=== PATIENT | female | born 1980 | race Caucasian/White ===

== ENCOUNTER 2019-06-05 11:26 | Inpatient (IN) | payer MEDICAID ==
[~2019-06-05] VITALS: Ht 154.9 cm; Wt 54.0 kg
--- NOTE | 2019-06-05 11:27 | NUR ---
Yvonne huntley in [facility] - 06/05/19 at [email or web address] Martinez evaluating patient at bedside.
[2019-06-05 11:32] VITALS: BP 116/75
--- NOTE | 2019-06-05 11:36 | NUR ---
Patient ambulated to bed 9. RN evaluating patient at bedside.
--- NOTE | 2019-06-05 11:37 | NUR ---
Dr. Martinez evaluating patient at bedside.
[2019-06-05] MEDS ORDERED: NACL 0.9% 1,000 ML IV SCH ×2 (11:48→16:14)
[2019-06-05] MEDS ORDERED: ONDANSETRON 4 MG/2 ML VIAL IVP ONE (11:50)
[2019-06-05] MEDS ORDERED: DIPHENOXYLATE /ATROPINE 2.5 MG TAB PO ONE (11:50)
--- NOTE | 2019-06-05 11:50 | NUR ---
Yvonen huntley in [facility] - 06/05/19 at [email or web address] MOSQUEDA AT BEDSIDE EVALUATING PT
--- NOTE | 2019-06-05 11:55 | NUR ---
PT C/O NON RADIATING RUQ ABD PAIN 6/10 & CRAMPING ACCOMPANIED BY N/V/D & CHILLS/WEAKNESS X1 WEEK. PT STATES "I HAVE HAD DIARRHEA AT LEAST 4 TIMES A DAY, MAYBE MORE, AND ALSO THE SAME OF VOMITING." PT AND HER REPORT THE WHOLE FAMILY BEING SICK WITH A STOMACH FLU RECENTLY. PT STATES SHE HAS LOST 10LBS IN THE LAST WEEK AND IS UNABLE TO KEEP FOOD OR WATER DOWN. ABDOMEN IS SOFT & TENDER TO PALPATION ON RUQ. LBM TODAY, DIARRHEA. BOWEL SOUNDS PRESENT X4. BED IN LOW POSITION, SIDE RAIL UP X1.
--- NOTE | 2019-06-05 11:56 | NUR ---
PHLEB at bedside.
--- NOTE | 2019-06-05 12:03 | NUR ---
TONGUE STITCHER AT BEDSIDE
[2019-06-05 12:08] LABS: BASOPHILS % (AUTO) 0.4 % (0.0-2.0); EOSINOPHILS # (AUTO) 0.1 K/uL (0-0.4); EOSINOPHILS % (AUTO) 1.4 % (0.0-4.0); HEMATOCRIT 45.8 % (36-48); LYMPHOCYTES # (AUTO) 1.5 K/uL (2.5-16.5); MEAN CORPUSCULAR HEMOGLOBIN 31 pg (27-31); MEAN CORPUSCULAR HGB CONC 35 g/dL (33-37); MEAN CORPUSCULAR VOLUME 89.7 fL (80-94); MONOCYTES # (AUTO) 0.7 K/uL (0.8-1.0); MONOCYTES % (AUTO) 13.8 % (1.7-9.3); NEUTROPHILS # (AUTO) 2.7 K/uL (1.8-7.7); NEUTROPHILS % (AUTO) 54.4 % (42.2-75.2); PLATELET COUNT (AUTO) 240 K/uL (140-450); RED CELL DISTRIBUTION WIDTH 12.2 % (11.6-13.7); WHITE BLOOD COUNT (AUTO) 4.9 K/uL (4.8-10.8)
[2019-06-05 12:28] LABS: ALBUMIN 3.6 g/dL (3.4-5.0); ANION GAP 14.6 (8-16); CARBON DIOXIDE 28.3 mmol/L (21-32); POTASSIUM 2.9 mmol/L (3.5-5.1); TOTAL BILIRUBIN 0.6 mg/dL (0.0-1.0)
[2019-06-05] MEDS ORDERED: KCL 20 MEQ/WATER INJ PREMIX 100 ML IV ONE (12:45)
[2019-06-05] MEDS ORDERED: MAG SULF 2000 MG/WATER PREMIX 50 ML IV ONE (12:45)
[2019-06-05] MEDS ORDERED: POTASSIUM CHLORIDE 10 MEQ TABER PO ONE (12:45)
--- NOTE | 2019-06-05 13:44 | NUR ---
Dr. Martinez re-evaluating patient at bedside.
[2019-06-05 14:17] LABS: APPEARANCE,URINE CLEAR (CLEAR); BILIRUBIN,URINE 2+ (NEGATIVE); BLOOD, URINE 2+ (NEGATIVE); COLOR,URINE YELLOW (YELLOW); LEUKOCYTE ESTERASE ,URINE TRACE (NEGATIVE); NITRITE, URINE NEGATIVE (NEGATIVE); UGLUCOSE NEGATIVE (NEGATIVE)
[2019-06-05 14:33] LABS: RBC,URINE 11-20 (MOD) /HPF (0-5); WBC,URINE 16-25 (MOD) /HPF (0-5)
--- NOTE | 2019-06-05 15:45 | NUR ---
PT STATES SHE HAD SYNCOPAL EPISODE IN BATHROOM, PT WAS AMBULATORY TO [facility] ROM BATHRROO, STATES SHE "LAID AGAINST WALL" AND WAS "OUT" FOR A FEW SECONDS, REDNESS NOTED TO FOREHEAD, NO OPEN SKIN, PT IS A&OX4, VSS, DR MOSQUEDA MADE AWARE.
--- NOTE | 2019-06-05 16:00 | NUR ---
PT AWAKE AND RESTING IN BED AT THIS TIME. NO NEW NEEDS PER PT
[2019-06-05] MEDS ORDERED: MORPHINE SULFATE 2 MG/ML SYR IVP PRN (16:15)
[2019-06-05] MEDS ORDERED: HYDROcodone/APAP 5/325 MG 1 TAB TAB PO PRN (16:15)
[2019-06-05] MEDS ORDERED: ACETAMINOPHEN 325 MG TAB PO PRN (16:15)
[2019-06-05] MEDS ORDERED: ONDANSETRON 4 MG/2 ML VIAL IM/IVP PRN (16:15)
--- NOTE | 2019-06-05 16:40 | NUR ---
PT AWAKE AND ON PHONE IN BED
[2019-06-05] MEDS ORDERED: DEXT 5% /NACL 0.9% 1,000 ML IV ONE (17:00)
--- NOTE | 2019-06-05 17:00 | NUR ---
GOT BEDSIDE REPORT FROM ER NURSE. PATIENT ON MED SURGE FLOOR WITH STANDARD PRECAUTIONS IN PLACE. PATIENT AAOX3, FOLLOWS COMMANDS, AND COMMUNICATES APPROPRIATELY. PATIENT SKIN INTACT, FALL RISK PROTOCOL IN PLACE. PATIENT ON ROOM AIR, NO DISTRESS NOTED. IVS ON L AC 20 G INFUSING D5 1/2 NS AT 100, AND R AC 22 G SALINE LOCK, BOTH IVS PATENT AND INTACT. BED IN LOW POSITION, CALL LIGHT WITHIN REACH, SIDE RAILS X2 UP
--- NOTE | 2019-06-05 17:08 | NUR ---
Patient will be admitted to care of [facility]. Admited to MED SURG. Will go to room 106A. Belongings list completed. Report to JIMBO BYRNE.
[2019-06-05 17:26] VITALS: BP 101/68
[2019-06-05 17:41] LABS: MAGNESIUM 2.2 mg/dL (1.8-2.4); PHOSPHORUS 4.6 mg/dL (2.5-4.9)
[2019-06-05 17:48] LABS: BARBITURATE, URINE NEG. ng/ml (NEG <=200); BENZODIAZEPINE, URINE NEG. ng/mL (NEG <=200); CANNABINOID, URINE NEG. ng/mL (NEG <=50); COCAINE, URINE NEG. ng/mL (NEG <=300); OPIATE, URINE NEG. ng/mL (NEG <=2000); PHENCYCLIDINE SCREEN,URINE NEG. ng/mL (NEG <=25)
[2019-06-05 17:50] LABS: PROTHROMBIN TIME 9.6 secs (10.8-13.4)
--- NOTE | 2019-06-05 19:00 | NUR ---
GAVE BEDSIDE REPORT TO VP COMMUNICATIONS NURSE. PATIENT ENDORSED IN STABLE CONDITION
[2019-06-05] MEDS ORDERED: LOPERAMIDE 2 MG CAP PO PRN (19:15)
--- NOTE | 2019-06-05 19:25 | NUR ---
RECEIVED FROM AM RN IN BED AWAKE AND ALERT. ORIENTED X 4. FOLLOWS COMMANDS, AND COMMUNICATES APPROPRIATELY. PATIENT SKIN INTACT, FALL RISK PROTOCOL IN PLACE. PATIENT ON ROOM AIR, NO DISTRESS NOTED. IVS ON L AC 20 G INFUSING D5 1/2 NS AT 100, AND R AC 22 G SALINE LOCK, BOTH IVS PATENT AND INTACT. BED IN LOW POSITION, CALL LIGHT WITHIN REACH, SIDE RAILS X2 UP. CARE PLANS FOR THE NIGHT DISCUSSED WITH HER. CALL LIGHT WITH IN REACH.
[2019-06-05] MEDS ORDERED: KETOROLAC 15 MG/ML VIAL IM PRN (19:55)
--- NOTE | 2019-06-05 21:42 | NUR ---
PT. NPO EXCEPT MEDICATIONS STATUS AT THIS TIME. FOR CT HEAD WITHOUT CONTRAST. AWAKE AND ALERT. NO SOB. ORIENTED X 4. ABLE TO VERBALIZE NEEDS WELL IN [place]. FOLLOWS COMMAND WELL. ENCOURAGED TO CALL FOR ANY HELP SHE MAY NEED. BED ALARM ON.
[2019-06-05 22:11] LABS: ANION GAP 11.6 (8-16); CARBON DIOXIDE 26.2 mmol/L (21-32); CREATININE 0.8 mg/dL (0.6-1.3); POTASSIUM 3.8 mmol/L (3.5-5.1)
--- NOTE | 2019-06-05 23:00 | NUR ---
PT. SLEEPING. NO COMPLAINTS DONE. NO RESTLESSNESS. BED ALARM ON AND CALL LIGHT AT BEDSIDE WITH IN REACH.
[2019-06-06] VITALS (11 sets, daily range): BP systolic 64–97; BP diastolic 25–92
[2019-06-06] MEDS ORDERED: NACL 0.9% 1,000 ML IV SCH (00:15)
--- NOTE | 2019-06-06 00:25 | NUR ---
ORTHOSTATIC VITAL SIGNS TAKEN AND MADE RESIDENT MD AWARE OF IT. WITH NEW ORDER FOR BOLUS. PT. AWAKE AND ALERT. STANDBY ASSIST TO RESTROOM BY PRODUCE WEIGHER AT THIS TIME. NO COMPLAINTS OF PAIN. ABLE TO WALK BY HERSELF. BED ALARM ON.
--- NOTE | 2019-06-06 04:15 | NUR ---
PT. REQUESTED FOR ANTI DIARRHEA RT STATED THAT SHE HAS LOOSE STOOL. WILL MEDICATE WITH IMODIUM P.O. ORDERED BY MD. PT. ABLE TO VERBALIZE NEEDS WELL IN [place]GOLESE. CALL LIGHT WITH IN REACH AND BED ALARM ON.
--- NOTE | 2019-06-06 05:25 | NUR ---
PT. SLEEPING AT THIS TIME. AM PERSONAL HYGIENE RENDERED BY CHEMICALS DISTILLER. NO COMPLAINTS OF PAIN DONE. ABLE TO VERBALIZE NEEDS WELL. CALL LIGHT WITH IN REACH AND BED ALARM ON. DX. OF SYNCOPE AND HYPOKALEMIA. PT. BEEN AMBULATING TO RESTROOM SITUATED INSIDE ROOM INDEPENDENTLY BUT WITH STANDBY ASSIST.
[2019-06-06] MEDS ORDERED: DEXT 5% /NACL 0.9% 1,000 ML IV SCH (06:35)
--- NOTE | 2019-06-06 06:37 | NUR ---
RESIDENT MD MADE AWARE OF LATEST VITAL SIGNS. " I WILL ORDER IVF TO CONTINUE." PT. ABLE TO VERBALIZE NEEDS WELL. NO SOB. BED ALARM ON. CALL LIGHT WITH IN REACH.
--- NOTE | 2019-06-06 07:35 | NUR ---
ENDORSED TO THE NEXT RN AWAKE AND ALERT. NO COMPLAINTS DONE. ASSISTED WITH AMBULATION RT DX. SYNCOPE.
[2019-06-06 07:50] LABS: CHOL/HDL RATIO 3.4 (1-4.5)
[2019-06-06] MEDS ORDERED: NACL 0.9% 1,000 ML IV ONE ×2 (08:00→21:30)
--- NOTE | 2019-06-06 08:00 | NUR ---
RECEIVED BED SIDE REPORT FROM WOOD BARREL RECONDITIONER RN. PT A/O X4, SKIN INTACT, RIGHT AC 22G AND L AC 20G RUNNING 1L BOLUS NS. BP 91/57, PT ASYMPTOMATIC, DENIES LIGHTHEADEDNESS, DIZZYNESS. PT ON TELE MONITOR NOW. PT ON CLEAR LIQUID DIET. LUNG SOUNDS CLEAR, REGULAR HEART SOUNDS. ON FALL RISK, CALL LIGHT WITHIN REACH. EDUCATED PT ON LETTING ME KNOW WHEN SHE HAS A BM. WILL COLLECT STOOL CULTURE AND C.DIFF TOXIN SAMPLE. ON RA IN NO RESP DISTRESS, WILL CONTINUE TO MONITOR.
--- NOTE | 2019-06-06 08:11 | NUR ---
GAVE BED SIDE REPORT TO HAL CHOI. PT STABLE.
--- NOTE | 2019-06-06 08:21 | NUR ---
RECEIVED REPORT FROM LIVAN CHOI FOR CONTINUITY OF CARE. PT IN STABLE CONDITION AT THIS TIME. WILL MONITOR PT FREQUENTLY.
--- NOTE | 2019-06-06 08:36 | NUR ---
PATIENT HAS BEEN SCREENED AND CATEGORIZED HIGH NUTRITION RISK. PATIENT WILL BE SEEN WITHIN 1-2 DAYS OF ADMISSION. 06/06/19-06/07/[address]
--- NOTE | 2019-06-06 09:21 | NUR ---
COLLECTED STOOL SPECIMEN AND SENT TO LAB. AWAITING C-DIFF RESULTS. PT IN STABLE CONDITION AT THIS TIME.
--- NOTE | 2019-06-06 11:47 | NUR ---
PT EXPERIENCING DIARRHEA. PT ABLE TO AMBULATE SELF. AWAITING C-DIFF RESULTS. CONTACT ISOLATION SIGNS POSTED FOR PRECAUTION.
[2019-06-06] MEDS: POTASSIUM CHL 20MEQ/D5-NS 1,000 ML IV SCH (11:51)
[2019-06-06] MEDS ORDERED: MAGNESIUM CITRATE 300 ML BTL PO SCH (13:00)
--- NOTE | 2019-06-06 13:38 | NUR ---
PT RESTING IN BED. WILL CONTINUE TO ROUND FREQUENTLY ON PT.
[2019-06-06] MEDS: SENNA 8.6 MG TAB PO SCH ×2 (13:39→17:00)
[2019-06-06 14:48] LABS: ANION GAP 12.3 (8-16); CARBON DIOXIDE 22.2 mmol/L (21-32); CREATININE 0.7 mg/dL (0.6-1.3); POTASSIUM 3.5 mmol/L (3.5-5.1)
--- NOTE | 2019-06-06 15:18 | NUR ---
06/06/19 RD INITIAL ASSESSMENT COMPLETED PLEASE REFER TO NUTRITION ASSESSMENT UNDER CARE ACTIVITY FOR ESTIMATED NUTRITIONAL NEEDS. 1. RECOMMEND ENSURE CLEAR BID 2. CONTINUE CLEAR LIQUID DIET MEDICALLY APPROPRIATE 3. ADVANCE DIET TO REGULAR TOLERATED 4. RD TO FOLLOW-UP 3-5 DAYS, MODERATE RISK STANLEY PHILIP, RD
--- NOTE | 2019-06-06 15:47 | NUR ---
PT SLEEPING. VITAL SIGNS STABLE. TELE MONITOR ON. WILL CONTINUE TO ROUND FREQUENTLY ON PT.
[2019-06-06] MEDS: METOCLOPRAMIDE 10 MG TAB PO SCH (17:31)
--- NOTE | 2019-06-06 19:00 | NUR ---
RECEIVED BEDSIDE REPORT FROM DAYSHIFT NURSE. PATIENT IS AWAKE, ALERT, AND COOPERATIVE. RESPIRATION EVEN UNLABORED ON ROOM AIR. NO DISTRESS NOTED. SKIN IS WARM AND DRY. IV PATENT AND INTACT. DENIES PAIN. PATIENT IS AMBULATORY AND ABLE TO MAKE NEEDS KNOWN. PLAN OF CARE WAS DISCUSSED. ALL SAFETY MEASURES IN PLACE. BED IS AT LOW POSITION. CALL LIGHT WITHIN REACH AND VERBALIZES ITS USE. WILL CONTINUE TO MONITOR.
--- NOTE | 2019-06-06 19:51 | NUR ---
ENDORSED PT TO CENTER ADMINISTRATOR FOR CONTINUITY OF CARE. PT IN STABLE CONDITION AT THIS TIME.
--- NOTE | 2019-06-06 20:00 | NUR ---
INITIAL ASSESSMENT DONE. VITALS WERE TAKEN. PATIENT BP 83/46 WILL NOTIFY RESIDENT AND RECHECK AGAIN LATER.
--- NOTE | 2019-06-06 20:30 | NUR ---
RECHECKED BP. PATIENT BP 85/55. DR KEVIN (RESIDENT) NOTIFIED. WILL CONTINUE TO MONITOR.
[2019-06-06] MEDS: POLYETHYLENE GLYCOL 17 GM/PKT PO SCH (20:57)
[2019-06-06] MEDS: LACTULOSE 20 GM/30 ML UDC PO SCH (20:57)
--- NOTE | 2019-06-06 21:00 | NUR ---
ALL SCHEDULED MEDS WERE GIVEN PER ORDER. NO ASE NOTED. WILL CONTINUE TO MONITOR.
--- NOTE | 2019-06-06 21:39 | NUR ---
PATIENT IS TAKING LAXATIVE FOR COLONOSCOPY PROCEDURE. HAD A BOWEL MOVEMENT. TEXTURE SOFT-LIQUID. COLOR YELLOW. WILL CONTINUE TO MONITOR.
--- NOTE | 2019-06-06 22:00 | NUR ---
DR. KEVIN (RESIDENT) ORDER TO BOLUS 1L OF NS. WILL CONTINUE TO MONITOR.
--- NOTE | 2019-06-06 23:30 | NUR ---
BOLUS OF 1L NS DONE. CHECKED PATIENT BP 83/56 REPORT THE RESULT TO DR. KEVIN (RESIDENT) WILL CONTINUE TO MONITOR.
[2019-06-07] VITALS: BP 83/56
--- NOTE | 2019-06-07 | NUR ---
VITALS WERE TAKEN. BP STILL LOW. DR. KEVIN (RESIDENT) PUT AN ORDER FOR PROAMATINE 10MG TO INCREASED BP. WILL CONTINUE TO MONITOR FOR EFFECTIVENESS.
[2019-06-07] MEDS: POTASSIUM CHL 20MEQ/D5-NS 1,000 ML IV SCH ×4 (00:09→16:32)
--- NOTE | 2019-06-07 02:30 | NUR ---
CHECKED PATIENT. PATIENT SLEEPING RESPIRATION EVEN UNLABORED ON ROOM AIR. NO DISTRESS NOTED. WILL CONTINUE TO MONITOR.
[2019-06-07 04:00] VITALS: BP 98/60
--- NOTE | 2019-06-07 04:00 | NUR ---
VITALS WERE TAKEN. PATIENT BP IMPROVED 98/60. NO DISTRESS NOTED. WILL CONTINUE TO MONITOR.
--- NOTE | 2019-06-07 06:27 | NUR ---
PATIENT TOTAL BOWEL MOVEMENT 4. STOOL IS WATERY NO SOLID PIECES ENTIRELY LIQUID. COLOR IS YELLOW.
[2019-06-07] MEDS: METOCLOPRAMIDE 10 MG TAB PO SCH ×2 (06:37→12:40)
[2019-06-07] MEDS ORDERED: MIDODRINE 5 MG TAB PO SCH ×2 (07:00)
--- NOTE | 2019-06-07 07:15 | NUR ---
ENDORSED PATIENT TO DAY SHIFT NURSE. PATIENT IN STABLE CONDITION.
--- NOTE | 2019-06-07 07:27 | NUR ---
RECEIVED HAND OFF REPORT FROM PM RN. PT AWAKE IN BED. IVF INFUSING AT 125 ML/HR. IV SITE PATENT AND SHOWS NO SIGNS OF INFILTRATION OF INFLAMMATION. ALL SAFETY MEASURES ARE IN PLACE WILL CONTINUE TO MONITOR
[2019-06-07 07:45] LABS: ANION GAP 14.9 (8-16); CREATININE 0.6 mg/dL (0.6-1.3); POTASSIUM 3.9 mmol/L (3.5-5.1)
[2019-06-07 07:50] LABS: BASOPHILS % (AUTO) 0.2 % (0.0-2.0); EOSINOPHILS # (AUTO) 0.1 K/uL (0-0.4); EOSINOPHILS % (AUTO) 2.6 % (0.0-4.0); HEMATOCRIT 37.3 % (36-48); HEMOGLOBIN 12.6 g/dL (12.0-16.0); LYMPHOCYTES # (AUTO) 1.5 K/uL (2.5-16.5); MEAN CORPUSCULAR HEMOGLOBIN 31 pg (27-31); MEAN CORPUSCULAR HGB CONC 34 g/dL (33-37); MEAN CORPUSCULAR VOLUME 91.8 fL (80-94); MONOCYTES # (AUTO) 0.4 K/uL (0.8-1.0); MONOCYTES % (AUTO) 9.4 % (1.7-9.3); NEUTROPHILS # (AUTO) 1.8 K/uL (1.8-7.7); NEUTROPHILS % (AUTO) 47.8 % (42.2-75.2); PLATELET COUNT (AUTO) 231 K/uL (140-450); RED BLOOD CELL COUNT(AUTO) 4.07 MIL/uL (4.20-5.40); RED CELL DISTRIBUTION WIDTH 12.3 % (11.6-13.7); WHITE BLOOD COUNT (AUTO) 3.8 K/uL (4.8-10.8)
[2019-06-07 08:00] VITALS: BP 129/88
[2019-06-07 08:20] LABS: MAGNESIUM 1.9 mg/dL (1.8-2.4); PHOSPHORUS 2.9 mg/dL (2.5-4.9)
[2019-06-07] MEDS: POLYETHYLENE GLYCOL 17 GM/PKT PO SCH (08:23)
[2019-06-07] MEDS: LACTULOSE 20 GM/30 ML UDC PO SCH (08:23)
[2019-06-07] MEDS: SENNA 8.6 MG TAB PO SCH ×2 (08:23→12:40)
--- NOTE | 2019-06-07 08:23 | NUR ---
ADMINISTERED MIRALAX, SENNA, AND LACTULOSE. WOW 6 NOT SCANNING
--- NOTE | 2019-06-07 11:25 | NUR ---
FREQUENT ROUNDING ON PT PT APPEARS STABLE AND IN NO APPARENT DISTRESS. ALL SAFETY MEASURES ARE IN PLACE WILL CONTINUE TO MONITOR
[2019-06-07 12:30] VITALS: BP 120/75
[2019-06-07] MEDS ORDERED: CHLORHEXADINE GLUC 2% CLOTH TP SCH (13:00)
[2019-06-07] MEDS ORDERED: MUPIROCIN CA NASAL 2% 1GM TUBE NS SCH (13:00)
--- NOTE | 2019-06-07 13:40 | NUR ---
POSITIVE MRSA NARES. NOTIFIED DR. PATEL. RECEIVED ORDERS FOR CHOLEXIDEN WIPES AND BACTROBAN. INSTRUCTED PT ON DIAGNOSIS AND THE ROUTINE
[2019-06-07] MEDS ORDERED: fentaNYL 0.05 MG/ML VIAL ONE (15:25)
[2019-06-07] MEDS ORDERED: diphenhydrAMINE 50 MG/ML VIAL ONE (15:25)
[2019-06-07] MEDS ORDERED: MIDAZOLAM 2 MG/2 ML VIAL ONE (15:25)
--- NOTE | 2019-06-07 15:26 | NUR ---
PT TAKEN OFF THE UNIT FOR PROCEDURE.
[2019-06-07] MEDS ORDERED: MIDAZOLAM 2 MG/2 ML VIAL IVP ONE (16:20)
[2019-06-07] MEDS ORDERED: fentaNYL 0.05 MG/ML VIAL IVP ONE (16:20)
[2019-06-07 16:25] VITALS: BP 103/74
--- NOTE | 2019-06-07 16:40 | NUR ---
PT ARRIVED BACK ON THE UNIT FROM EGD COLONSCOPY/ PT APPEARS STABLE AND IN NO APPARENT DISTRESS. CONNECTED PT BACK TO IVF. IV SITE PATENT AND SHOWS NO SIGNS OF INFILTRATION OR INFLAMMATION. 103/74 99% SPO2 ON ROOM AIR 97.6 HR 89. PT AMBULATED TO BATHROOM WITH A STEADY GAIT. GAVE PT CHICKEN BROTH AND JELLO PATIENT TOLERATED NO COMPLAINTS OF NAUSEA OR UPSET STOMACH
[2019-06-07 17:20] VITALS: BP 108/62
[2019-06-07] MEDS ORDERED: CHLO118S2 TP (17:28)
[2019-06-07] MEDS ORDERED: MUPI2CRE22 NS (17:28)
--- NOTE | 2019-06-07 18:05 | NUR ---
REVIEWED DISCHARGE PAPERWORK WITH PATIENT INFORMED TO CNC SET UP OPERATOR PRESCRIPTION FROM PREFERRED PHARMACY. INFORMED PATIENT THAT SHE HAS A FOLLOW UP APPOINTMENT AT [facility] IN [place] AT 0920 PT SIGNED ALL PAPER WORK I ANSWERED ALL QUESTIONS. REMOVED IV BOTH IV TIPS WERE INTACT.ALL SAFETY MEASURES ARE IN PLACE. WILL CONTINUE TO MONITOR.
== END 2019-06-07 18:00 | disposition home or self-care (01) | DRG 48 ==
LOC: MED 11:26 → MTU 16:14
PROVIDERS: ADMIT General Practice; ATTEND General Practice
PROC: 0DBE8ZX Excision of Large Intestine, Via Natural or Artificial Opening Endoscopic, Diagnostic (ICD-10-PCS; 2019-06-07)
PROC: 0DB68ZX Excision of Stomach, Via Natural or Artificial Opening Endoscopic, Diagnostic (ICD-10-PCS; principal; 2019-06-07 15:15)
PROC: 0DBP8ZX Excision of Rectum, Via Natural or Artificial Opening Endoscopic, Diagnostic (ICD-10-PCS; 2019-06-07 15:15)
DX: G90.8 Other disorders of autonomic nervous system (principal); E87.8 Other disorders of electrolyte and fluid balance, not elsewhere classified; E87.6 Hypokalemia; K80.20 Calculus of gallbladder without cholecystitis without obstruction; N39.0 Urinary tract infection, site not specified; Z22.322 Carrier or suspected carrier of Methicillin resistant Staphylococcus aureus; K29.70 Gastritis, unspecified, without bleeding
CPT/HCPCS: 36415; 70450; 71045; 76700; 80048; 80053; 80305; 81001; 82150; 82948; 83036; 83605; 83690; 83735; 83880; 84100; 84436; 84443; 84484; 85025; 85610; 85730; 86677; 87045; 87070; 87081; 87086; 87186; 93880; 96365; 96375; 99285; J0696; J1200; J2250; J2405; J3010; J3475; J3480; J7030; J7042; J7060; J8597; Q0092

== ENCOUNTER 2019-09-17 15:49 | Emergency (ER) | payer MEDICAID ==
[~2019-09-17] VITALS: Ht 154.9 cm; Wt 55.8 kg
[~2019-09-17 15:49] MED LIST: CHLO118S2 TP; MUPI2CRE22 NS
[2019-09-17 15:58] VITALS: BP 85/52
--- NOTE | 2019-09-17 16:04 | NUR ---
PT W/C ASSISTED TO BED 2.
[2019-09-17] MEDS ORDERED: NACL 0.9% 1,000 ML IV SCH (16:06)
--- NOTE | 2019-09-17 16:25 | NUR ---
38 Y/O FEMALE PRESENTING WITH C/C OF N/V/D SINCE TUESDAY AND SOB X1 DAY. SPO2 100% ROOM AIR. PER PT NO NKA. NO MEDICATIONS. NO MEDICAL HX. PT STATES ABD PAIN 7/10, BOWEL SOUNDS NORMOACTIVE. LUNG SOUNDS CLEAR BILATERAL. SIDE RAIL X1. FAMILY AT BEDSIDE.
--- NOTE | 2019-09-17 16:26 | NUR ---
LAB AT BEDSIDE
[2019-09-17 16:32] LABS: BASOPHILS % (AUTO) 0.2 % (0.0-2.0); EOSINOPHILS % (AUTO) 0.6 % (0.0-4.0); HEMATOCRIT 41.2 % (36-48); HEMOGLOBIN 14.1 g/dL (12.0-16.0); LYMPHOCYTES # (AUTO) 1.9 K/uL (2.5-16.5); MEAN CORPUSCULAR HEMOGLOBIN 31 pg (27-31); MEAN CORPUSCULAR HGB CONC 34 g/dL (33-37); MONOCYTES # (AUTO) 0.5 K/uL (0.8-1.0); MONOCYTES % (AUTO) 6.9 % (1.7-9.3); NEUTROPHILS # (AUTO) 4.8 K/uL (1.8-7.7); NEUTROPHILS % (AUTO) 66.3 % (42.2-75.2); PLATELET COUNT (AUTO) 223 K/uL (140-450); RED BLOOD CELL COUNT(AUTO) 4.53 MIL/uL (4.20-5.40); RED CELL DISTRIBUTION WIDTH 12.6 % (11.6-13.7); WHITE BLOOD COUNT (AUTO) 7.2 K/uL (4.8-10.8)
--- NOTE | 2019-09-17 16:40 | NUR ---
PT STATES SHE IS UNABLE TO GIVE URINE AT THIS TIME
[2019-09-17 17:01] LABS: ANION GAP 16.7 (8-16); CARBON DIOXIDE 24.3 mmol/L (21-32); CREATININE 0.6 mg/dL (0.6-1.3)
[2019-09-17] MEDS ORDERED: ONDANSETRON 4 MG/2 ML VIAL IVP ONE (17:05)
[2019-09-17] MEDS ORDERED: POTASSIUM CHLORIDE 10 MEQ TABER PO ONE (17:05)
[2019-09-17 17:07] LABS: ALBUMIN 3.5 g/dL (3.4-5.0); TOTAL BILIRUBIN 1.5 mg/dL (0.0-1.0)
[2019-09-17] MEDS ORDERED: PROMETHAZINE 25 MG/ML VIAL IVP ONE (17:15)
--- NOTE | 2019-09-17 17:49 | NUR ---
VS STABLE. PT ALERT AND AWAKE. PAIN 5/10 AT THIS TIME
[2019-09-17 18:02] VITALS: BP 132/72
--- NOTE | 2019-09-17 18:02 | NUR ---
Patient discharged with v/s stable. Written and verbal after care instructions given and explained REGARDING MORNING SICKNESS AND HYPOKALEMIA. Patient alert, oriented and verbalized understanding of instructions. Ambulatory with steady gait. All questions addressed prior to discharge. ID band removed. Patient advised to follow up with PMD. Rx of PHENERGAN given. Patient educated on indication of medication including possible reaction and side effects. Opportunity to ask questions provided and answered. PT GIVEN EXCUSE FOR WORK THROUGH THE 09/18/19
== END 2019-09-17 18:06 | disposition home or self-care (01) ==
LOC: MED 15:49
DX: O21.8 Other vomiting complicating pregnancy (principal); O99.280 Endocrine, nutritional and metabolic diseases complicating pregnancy, unspecified trimester; Z79.899 Other long term (current) drug therapy; Z3A.01 Less than 8 weeks gestation of pregnancy
CPT/HCPCS: 36415; 80053; 81002; 81025; 83690; 85025; 96361; 96374; 99283; J2550; J7030; J2405

== ENCOUNTER 2019-12-13 15:17 | Emergency (ER) | payer MEDICAID ==
[~2019-12-13] VITALS: Ht 154.9 cm; Wt 56.2 kg
[2019-12-13 15:23] VITALS: BP 112/77
--- NOTE | 2019-12-13 15:30 | NUR ---
PT AMBULATED TO BED 8 STEADY GAIT.
--- NOTE | 2019-12-13 15:37 | NUR ---
PT AMBULATED TO BATHROOM FOR URINE SAMPLE, STEADY GAIT
--- NOTE | 2019-12-13 15:43 | NUR ---
38 Y/F PRESENTS TO ED FOR LOW BP, SENT FROM PRIMARY CLINIC. PT C/O LIGHTHEADEDNESS AND HEADACHE. PT A & O X 4, LUNGS CLEAR, ABDOMEN SOFT AND NON DISTENDED. HX OF APPENDECTOMY "LAST TUES", INCISION IS CLEAN, LINEAR, NO DRAINAGE OR EXUDATE NOTED. PT DENIES NAUSEA, ABDOMINAL PAIN, OR FEVER. NKDA RX- IBUPROFEN
[2019-12-13] MEDS ORDERED: KETOROLAC 30 MG/ML VIAL IVP ONE (15:50)
[2019-12-13] MEDS ORDERED: NACL 0.9% 1,000 ML IV ONE (15:50)
--- NOTE | 2019-12-13 16:29 | NUR ---
NADR, decreased pain 5/10
[2019-12-13 16:49] VITALS: BP 98/64
--- NOTE | 2019-12-13 16:50 | NUR ---
Patient discharged with v/s stable. Written and verbal after care instructions given and explained. Patient verbalized understanding. Ambulatory with steady gait. All questions addressed prior to discharge. Advised to follow up with PMD.
--- NOTE | 2019-12-14 12:04 | NUR ---
Late entry. COnfirmed with RN that 0.9 NS IV completed at 1649
== END 2019-12-13 15:45 | disposition home or self-care (01) ==
LOC: MED 15:17
DX: I95.9 Hypotension, unspecified (principal); E86.0 Dehydration; Z79.899 Other long term (current) drug therapy; Z90.49 Acquired absence of other specified parts of digestive tract
CPT/HCPCS: 81002; 81025; 96361; 96374; 99283; J1885; J7030

== ENCOUNTER 2020-05-05 08:22 | Emergency (ER) | payer MEDICAID ==
[~2020-05-05] VITALS: Ht 154.9 cm; Wt 55.8 kg
[2020-05-05 08:31] VITALS: BP 114/76
--- NOTE | 2020-05-05 08:38 | NUR ---
Patient ambulated to bed 7. RN evaluating patient at bedside.
--- NOTE | 2020-05-05 08:40 | NUR ---
PT C/O DIZZINESS AND NON-FOUL WATERY DIARRHEA FOR 2 DAYS PRIOR TO ARRIVAL. DENIES VOMITTING BUT FELT NAUSEA. PT ALSO RESPORT HAVING STERNAL PRESSURE-LIKE NON-RADIATING CP FOR 3 DAYS. THE PAIN EXACERBATED WHILE SHE IS LYING DOWN OR CHANGR POSITION FROM LYING TO SITTING. PT DENIES ANY FEVER, CP, SOB, OR COUGH AT THIS TIME; PATIENT STATES PAIN OF 4/10 AT THIS TIME; VSS; PATIENT POSITIONED FOR COMFORT; HOB ELEVATED; BEDRAILS UP X1; BED DOWN. ER MD MADE AWARE OF PT STATUS.
--- NOTE | 2020-05-05 08:42 | NUR ---
Dr. Martinez is evaluating the patient at bedside.
[2020-05-05] MEDS ORDERED: NACL 0.9% 1,000 ML IV ONE (08:50)
[2020-05-05 09:06] LABS: BASOPHILS % (AUTO) 0.4 % (0.0-2.0); EOSINOPHILS # (AUTO) 0.2 K/uL (0-0.4); EOSINOPHILS % (AUTO) 3.6 % (0.0-4.0); HEMATOCRIT 38.7 % (36-48); HEMOGLOBIN 12.8 g/dL (12.0-16.0); LYMPHOCYTES # (AUTO) 1.8 K/uL (2.5-16.5); LYMPHOCYTES % (AUTO) 32.9 % (20.5-51.1); MEAN CORPUSCULAR HEMOGLOBIN 32 pg (27-31); MEAN CORPUSCULAR HGB CONC 33 g/dL (33-37); MEAN CORPUSCULAR VOLUME 95.4 fL (80-94); MONOCYTES # (AUTO) 0.4 K/uL (0.8-1.0); NEUTROPHILS # (AUTO) 3.1 K/uL (1.8-7.7); NEUTROPHILS % (AUTO) 56.1 % (42.2-75.2); PLATELET COUNT (AUTO) 210 K/uL (140-450); RED BLOOD CELL COUNT(AUTO) 4.06 MIL/uL (4.20-5.40); RED CELL DISTRIBUTION WIDTH 12.7 % (11.6-13.7); WHITE BLOOD COUNT (AUTO) 5.5 K/uL (4.8-10.8)
--- NOTE | 2020-05-05 09:15 | NUR ---
XRAY IS AT BEDSIDE.
[2020-05-05 09:31] LABS: ALBUMIN 3.4 g/dL (3.4-5.0); ANION GAP 15.1 (8-16); CARBON DIOXIDE 24.6 mmol/L (21-32); CREATININE 0.9 mg/dL (0.6-1.3); POTASSIUM 3.7 mmol/L (3.5-5.1); TOTAL BILIRUBIN 0.8 mg/dL (0.0-1.0)
--- NOTE | 2020-05-05 10:32 | NUR ---
Dr. Martinez is evaluating the patient at bedside.
[2020-05-05 11:04] VITALS: BP 110/72
--- NOTE | 2020-05-05 11:04 | NUR ---
Patient discharged with v/s stable. Written and verbal after care instructions given and explained. Patient alert, oriented and verbalized understanding of instructions. Ambulatory with steady gait. All questions addressed prior to discharge. ID band removed. Patient advised to follow up with PMD. Rx of Lomotil and Zofran given. Patient educated on indication of medication including possible reaction and side effects. Opportunity to ask questions provided and answered.
== END 2020-05-05 11:04 | disposition home or self-care (01) ==
LOC: MED 08:22
DX: K52.9 Noninfective gastroenteritis and colitis, unspecified (principal); R01.1 Cardiac murmur, unspecified; Z79.899 Other long term (current) drug therapy; Z90.49 Acquired absence of other specified parts of digestive tract
CPT/HCPCS: 36415; 71045; 80053; 81002; 81025; 83690; 84443; 85025; 93005; 96360; 99285; J7030; Q0092

== ENCOUNTER 2020-08-09 12:49 | Emergency (ER) | payer MEDICAID ==
[~2020-08-09] VITALS: Ht 154.9 cm; Wt 55.0 kg
[2020-08-09 13:01] VITALS: BP 102/70
[2020-08-09] MEDS ORDERED: NACL 0.9% 1,000 ML IV ONE (14:30)
[2020-08-09] MEDS ORDERED: ONDANSETRON 4 MG/2 ML VIAL IVP ONE (14:30)
[2020-08-09] MEDS ORDERED: KETOROLAC 30 MG/ML VIAL IVP ONE (14:30)
[2020-08-09 14:49] LABS: BASOPHILS % (AUTO) 0.3 % (0.0-2.0); EOSINOPHILS # (AUTO) 0.3 K/uL (0-0.4); HEMATOCRIT 38.5 % (36-48); HEMOGLOBIN 13.2 g/dL (12.0-16.0); LYMPHOCYTES # (AUTO) 1.9 K/uL (2.5-16.5); LYMPHOCYTES % (AUTO) 38.4 % (20.5-51.1); MEAN CORPUSCULAR HEMOGLOBIN 32 pg (27-31); MEAN CORPUSCULAR HGB CONC 34 g/dL (33-37); MEAN CORPUSCULAR VOLUME 92.1 fL (80-94); MONOCYTES # (AUTO) 0.3 K/uL (0.8-1.0); MONOCYTES % (AUTO) 6.8 % (1.7-9.3); NEUTROPHILS # (AUTO) 2.4 K/uL (1.8-7.7); NEUTROPHILS % (AUTO) 48.5 % (42.2-75.2); PLATELET COUNT (AUTO) 223 K/uL (140-450); RED BLOOD CELL COUNT(AUTO) 4.18 MIL/uL (4.20-5.40); RED CELL DISTRIBUTION WIDTH 12.6 % (11.6-13.7); WHITE BLOOD COUNT (AUTO) 4.9 K/uL (4.8-10.8)
[2020-08-09 15:12] LABS: ANION GAP 13.4 (8-16); CARBON DIOXIDE 24.2 mmol/L (21-32); CREATININE 0.8 mg/dL (0.6-1.3); POTASSIUM 3.6 mmol/L (3.5-5.1)
[2020-08-09 15:20] LABS: MAGNESIUM 2.4 mg/dL (1.8-2.4)
[2020-08-09 16:15] VITALS: BP 111/68
== END 2020-08-09 16:13 | disposition home or self-care (01) ==
LOC: MED 12:49
DX: R55 Syncope and collapse (principal); H81.10 Benign paroxysmal vertigo, unspecified ear; Z79.899 Other long term (current) drug therapy
CPT/HCPCS: 36415; 80048; 81002; 81025; 82948; 83735; 84443; 84484; 85025; 93005; 96361; 96374; 96375; 99284; J1885; J2405; J7030

== ENCOUNTER 2021-04-21 19:03 | Emergency (ER) | payer MEDICAID ==
[~2021-04-21] VITALS: Ht 154.9 cm; Wt 54.0 kg
[2021-04-21 19:16] VITALS: BP 117/70
[2021-04-21 20:51] LABS: BASOPHILS % (AUTO) 0.6 % (0.0-2.0); EOSINOPHILS # (AUTO) 0.1 K/uL (0-0.4); EOSINOPHILS % (AUTO) 1.2 % (0.0-4.0); HEMATOCRIT 36.9 % (36-48); HEMOGLOBIN 12.7 g/dL (12.0-16.0); LYMPHOCYTES # (AUTO) 2.4 K/uL (2.5-16.5); LYMPHOCYTES % (AUTO) 45.5 % (20.5-51.1); MEAN CORPUSCULAR HEMOGLOBIN 30 pg (27-31); MEAN CORPUSCULAR HGB CONC 34 g/dL (33-37); MEAN CORPUSCULAR VOLUME 87.6 fL (80-94); MONOCYTES # (AUTO) 0.4 K/uL (0.8-1.0); MONOCYTES % (AUTO) 8.3 % (1.7-9.3); NEUTROPHILS # (AUTO) 2.4 K/uL (1.8-7.7); NEUTROPHILS % (AUTO) 44.4 % (42.2-75.2); PLATELET COUNT (AUTO) 210 K/uL (140-450); RED BLOOD CELL COUNT(AUTO) 4.21 MIL/uL (4.20-5.40); RED CELL DISTRIBUTION WIDTH 14.8 % (11.6-13.7); WHITE BLOOD COUNT (AUTO) 5.4 K/uL (4.8-10.8)
[2021-04-21 21:21] LABS: ALBUMIN 3.4 g/dL (3.4-5.0); ANION GAP 8.5 (8-16); CARBON DIOXIDE 28.7 mmol/L (21-32); CREATININE 0.6 mg/dL (0.6-1.3); POTASSIUM 3.2 mmol/L (3.5-5.1)
[2021-04-21] MEDS ORDERED: DICYCLOMINE HCL LIQUID 20 MG, ALUMINUM HYD/MAG/SIMETHICONE 30 ML, LIDOCAINE VISCOUS 2% ... PO ONE ×3 (22:20)
[2021-04-21] MEDS ORDERED: NACL 0.9% 1,000 ML IV ONE (22:20)
[2021-04-21] MEDS ORDERED: ONDANSETRON 4 MG/2 ML VIAL IVP ONE (22:20)
[2021-04-21 23:04] VITALS: BP 124/79
[2021-04-21] MEDS ORDERED: CIPR500T4 PO (23:14)
[2021-04-21] MEDS ORDERED: ATRO1TAB PO (23:15)
[2021-04-21] MEDS ORDERED: ONDA-24 SL (23:15)
== END 2021-04-21 23:45 | disposition home or self-care (01) ==
LOC: MED 19:03
DX: K52.9 Noninfective gastroenteritis and colitis, unspecified (principal); R19.7 Diarrhea, unspecified; Z79.899 Other long term (current) drug therapy
CPT/HCPCS: 36415; 80053; 81002; 81025; 83690; 85025; 96361; 96374; 99283; J2405; J7030